=== PATIENT | male | born 2000 | race Caucasian/White ===

== ENCOUNTER → 2020-06-14 | Outpatient (REF) | payer BC | LOC: M LAB REF 09:57 | PROVIDERS: ATTEND Physician Assistant Medical | DX: Z11.59 Encounter for screening for other viral diseases (principal) ==

== ENCOUNTER → 2023-03-11 | Outpatient (CLI) | payer BC ==
[2023-03-11 15:07] LABS: URIC ACID 6.2 MG/DL (3.7-9.2)
[2023-03-11 15:15] LABS: C REACTIVE PROTEIN QUANTITATIV < 0.40 MG/DL (<1.0)
[2023-03-11 15:18] LABS: RHEUMATOID FACTOR QUANT 5.5 IU/ML (<14)
[2023-03-12 23:07] LABS: ANA (HEP2) Negative (.); CYCLIC CITRULLINATED PEPTIDE 8 units (0-19)
== END ==
LOC: M LAB 13:56
PROVIDERS: ATTEND Nurse Practitioner Adult Health
DX: L94.9 Localized connective tissue disorder, unspecified (principal)

== ENCOUNTER → 2023-09-30 | Outpatient (REF) | payer BC | LOC: M LAB REF 21:17 | PROVIDERS: ATTEND Physician Assistant | DX: J03.90 Acute tonsillitis, unspecified (principal) ==

== ENCOUNTER → 2024-10-06 | Outpatient (CLI) | payer BC | LOC: M RAD 13:29 | PROVIDERS: ATTEND Nurse Practitioner Adult Health | DX: M25.511 Pain in right shoulder (principal); M67.421 Ganglion, right elbow; S46.811A Strain of other muscles, fascia and tendons at shoulder and upper arm level, right arm, initial encounter; X58.XXXA Exposure to other specified factors, initial encounter; Y92.9 Unspecified place or not applicable; Y93.9 Activity, unspecified; Y99.9 Unspecified external cause status ==